=== PATIENT | male | born 1940 | race Caucasian/White ===

== ENCOUNTER 2018-11-03 23:56 | Emergency (ER) | payer MEDICARE ==
--- NOTE | 2018-11-04 01:21 | ED ---
HPI Chest Pain - HPI Summary HPI Summary: Pt is a 78 y/o M presenting to the ED with a chief complaint of chest pain first onset at about 2300. He states he was coming home from [place] today when he thought his blood sugar was low d/t feeling shakey and dizzy, but he ate and did not feel better. After getting off the plane, he was in the car home when he felt his chest was very tight. It has since not gone away. - History of Current Complaint Chief Complaint: EDChestPainROMI Time Seen by Provider: 11/04/18 00:28 Hx Obtained From: Patient Onset/Duration: Started Hours Ago, Still Present Timing: Constant, Lasting Hours Initial Severity: Moderate Current Severity: Mild Pain Intensity: 3 Pain Scale Used: 0-10 Numeric Chest Pain Location: Diffuse Chest Pain Radiates: No Character: Tightness Aggravating Factor(s): Nothing Alleviating Factor(s): Nothing Associated Signs and Symptoms: Positive: Dizziness, Other: - shakiness - Allergy/Home Medications Allergies/Adverse Reactions: Allergies Allergy/AdvReac Type Severity Reaction Status Date / Time acetaminophen Allergy See Comment Verified 11/04/18 00:05 streptomycin Allergy See Comment Verified 11/04/18 00:05 bee sting Allergy Severe Anaphylatic Uncoded 11/04/18 00:05 Shock Home Medications: Home Medications Alfuzosin HCl [Alfuzosin HCl ER] 1 tab PO DAILY 11/04/18 [History Confirmed ] PMH/Surg Hx/FS Hx/Imm Hx Previously Healthy: Yes Endocrine/Hematology History: Denies: Hx Diabetes, Hx Systemic Lupus Erythematosus Cardiovascular History: Denies: Hx Congestive Heart Failure, Hx Hypertension Respiratory History: Reports: Hx Sleep Apnea - ORAL APPLIANCE GI History: Reports: Hx Gastroesophageal Reflux Disease - ON MEDICATION FOR, Other GI Disorders - gerd History: Denies: Hx Dialysis, Hx Renal Disease Musculoskeletal History: Reports: Other Musculoskeletal History - 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 [facility] Hx Anesthesia Reactions: Yes - LITTLE LONGER THAN EXPECTED TO WAKE UP - Immunization History Date of Tetanus Vaccine: utd Date of Influenza Vaccine: fall 2017 Infectious Disease History: No Infectious Disease History: Reports: Hx Hepatitis - 1955 Denies: Traveled Outside the [place] in Last 30 Days - Family History Known Family History: Negative: Diabetes - Social History Alcohol Use: Daily Alcohol Amount: 1 glass of wine/day, 5-6 days per week Hx Substance Use: No Substance Use Type: Reports: None Hx Tobacco Use: No Smoking Status (MU): Never Smoked Tobacco Review of Systems Positive: Other - shakiness Positive: Chest Pain Psychological: Other - dizziness All Other Systems Reviewed And Are Negative: Yes Physical Exam - Summary Physical Exam Summary: Appearance: Well-appearing, Well-nourished, lying in bed comfortably Skin: Warm, dry, no obvious rash Eyes: sclera anicteric, no conjunctival pallor ENT: mucous membranes moist, pharynx appears normal Neck: Supple, nontender Respiratory: Clear to auscultation, no signs of respiratory distress Cardiovascular: Normal S1, S2. No murmurs. Normal distal pulses in tibial and radial bilaterally. Abdomen: Soft, nontender, normal active bowel sounds present Musculoskeletal: Normal, Strength/ROM Intact Neurological: A&Ox3, awake and alert, mentation is normal, speech is fluent and appropriate Psychiatric: affect is normal, does not appear anxious or depressed Triage Information Reviewed: Yes Vital Signs On Initial Exam: Initial Vitals Temp Pulse Resp BP Pulse Ox 98.1 F 86 22 156/92 100 11/04/18 00:02 11/04/18 00:02 11/04/18 00:02 11/04/18 00:02 11/04/18 00:02 Vital Signs Reviewed: Yes Diagnostics - Vital Signs Vital Signs Temp Pulse Resp BP Pulse Ox 11/04/18 00:11 78 16 99 11/04/18 00:10 77 20 149/89 100 11/04/18 00:02 98.1 F 86 22 156/92 100 - Laboratory Result Diagrams: 11/04/18 01:36 11/04/18 01:36 Lab Statement: Any lab studies that have been ordered have been reviewed, and results considered in the medical decision making process. - EKG 2358 Cardiac Rate: NL - 83bpm EKG Rhythm: Sinus Rhythm ST Segment: Normal Ectopy: None Summary of EKG Findings: EKG at 2358 shows NSR at 83bpm with no STEMI. Re-Evaluation - Re-Evaluation First Eval Re-Evaluation Time: 02:29 Change: Improved Comment: Pt has only minimal discomfort, now minimizing earlier symptoms. I reiterated need for repeat troponin testing, have ordered it for 0300 which would bring us to a delta 90 minutes which is the narrowest window I can tolerate for repeat troponin testing. Chest Pain Course/Dx - Course Course Of Treatment: Pt is a 78 y/o M presenting to the ED with a chief complaint of chest pain first onset around 2300. He felt shakey and dizzy earlier today which he thought was due to low blood sugar, but then getting in the car to go home he felt chest tightness, like his seatbelt was too tight, and it has not gone away. EKG at 2358 shows NSR at 83bpm with no STEMI. As of 228, pt has only minimal discomfort, now minimizing earlier symptoms. I reiterated need for repeat troponin testing, have ordered it for 0300 which would bring us to a delta 90 minutes which is the narrowest window I can tolerate for repeat troponin testing. His second troponin is 0.00, and he will be sent home with a dx of chest pain. He is stable and agreeable with this plan. - Diagnoses Provider Diagnoses: Chest pain Discharge - Sign-Out/Discharge Documenting (check all that apply): Patient Departure Patient Received Moderate/Deep Sedation with Procedure: No - Discharge Plan Condition: Good Disposition: HOME Patient Education Materials: Chest Pain (ED) Referrals: Jaleesa ESPINOZA,Farhan Salinas [Primary Care Provider] - Additional Instructions: The tests we did tonight did not show any sign of a heart problem, so we feel it is safe to go home tonight. I would ask that you contact your PCP early next week as you will likely need some outpatient testing to make sure your heart is ok. - Billing Disposition and Condition Condition: GOOD Disposition: Home - Attestation Statements Document Initiated by Scribe: Yes Documenting Scribe: Alysha Dalton Provider For Whom Scribe is Documenting (Include Credential): Deandre Fernandez MD. Scribe Attestation: I, Alysha Dalton, scribed for Deandre Fernandez MD. on 11/08/18 at 0455. Scribe Documentation Reviewed: Yes Provider Attestation: The documentation as recorded by the scribe, Alysha Dalton accurately reflects the service I personally performed and the decisions made by me, Deandre Fernandez MD. Status of Scribe Document: Viewed
[2018-11-04 01:54] LABS: ABS Basophils 0.1 10^3/ul (0-0.2); ABS Eosinophils 0.4 10^3/ul (0-0.6); ABS Lymphocytes 1.6 10^3/ul (1.0-4.8); ABS Monocytes 0.8 10^3/ul (0-0.8); Eosinophil % 4.6 %; Hematocrit 41 % (42-52); Hemoglobin 13.5 g/dL (14.0-18.0); Lymphocyte % 17.5 %; Mean Corpuscular HGB Conc 33 g/dL (31-36); Mean Corpuscular Hemoglobin 32 pg (27-31); Mean Corpuscular Volume 95 fL (80-94); Platelet Count 221 10^3/uL (150-450); Red Blood Count 4.27 10^6 /uL (4.18-5.48); Red Cell Distribution Width 14 % (10.5-15); White Blood Count 8.9 10^3/uL (3.5-10.8)
[2018-11-04 01:57] LABS: INR 0.97 (0.82-1.09)
[2018-11-04 02:09] LABS: Albumin 3.9 g/dL (3.2-5.2); BUN/Creatinine Ratio 22.2 (8-20); Calcium 8.9 mg/dL (8.6-10.3); EGFR African American 80.4 (>60); EGFR Non-African American 66.5 (>60); Potassium 3.9 mmol/L (3.5-5.0); Total Bilirubin 0.8 mg/dL (0.2-1.0); Total Protein 5.9 g/dL (6.4-8.9)
[2018-11-04 04:02] VITALS: BP 140/85
== END 2018-11-04 04:01 | disposition home or self-care (01) ==
LOC: ED 23:56
DX: R07.9 Chest pain, unspecified (principal); G47.30 Sleep apnea, unspecified; K21.9 Gastro-esophageal reflux disease without esophagitis; Z85.828 Personal history of other malignant neoplasm of skin
CPT/HCPCS: 36415; 80053; 84484; 85025; 85610; 93005; 99283

== ENCOUNTER 2024-03-09 14:20 | Inpatient (IN) ==
[2024-03-12] MEDS ORDERED: Senna TAB 8.6 mg TAB PO PRN (12:34)
[2024-03-12 14:22] LABS: Urine Appearance Clear; Urine Bilirubin Negative (Negative); Urine Blood Trace (Negative); Urine Color Yellow; Urine Glucose Negative (Negative); Urine Ketones Negative (Negative); Urine Nitrite Negative (Negative); Urine Protein Trace (Negative); Urine Specific Gravity 1.017 (1.002-1.030); Urine Urobilinogen 1+ (Negative); Urine pH 6.5 (5.0-8.0)
[2024-03-12 14:26] LABS: Urine Bacteria Absent /HPF (Absent); Urine Red Blood Cell 3+(>10/hpf) /HPF (0-Trace); Urine Squamous Epithelial Cell Present /HPF (Absent); Urine White Blood Cell 2+(11-20/hpf) /HPF (0-Trace)
[2024-03-12] MEDS: Heparin 5000 UNITS/ML 1 mL VIAL SUBCUT SCH (22:17)
[2024-03-13] MEDS: Polyethylene Glycol 3350 17 GM PACKET PO PRN (17:01)
[2024-03-13] MEDS: Senna TAB 8.6 mg TAB PO SCH (21:03)
[2024-03-14 07:27] LABS: ABS Basophils 0.1 10^3/uL (0.0-0.1); ABS Eosinophils 0.6 10^3/uL (0.0-0.5); ABS Monocytes 1.3 10^3/uL (0.0-1.1); ABS Neutrophils 10.3 10^3/uL (1.5-7.6); Eosinophil % 4.6 %; Hematocrit 28.6 % (38-53); Hemoglobin 9.7 g/dL (13.2-16.3); Lymphocyte % 7.8 %; Mean Corpuscular Hemoglobin 31.1 pg (27-33); Mean Corpuscular Volume 91.4 fL (80-97); Platelet Count 344 10^3/uL (150-450); Red Blood Count 3.13 10^6/uL (4.06-5.63); Red Cell Distribution Width 15.9 % (12-17); White Blood Count 13.4 10^3/uL (3.6-10.2)
[2024-03-14] MEDS: oxyCODONE SR 15 mg TAB PO ONE (09:35)
[2024-03-14 09:36] LABS: Albumin/Globulin Ratio 1.6 (1-3); Calcium 8.3 mg/dL (8.6-10.3); Creatinine, Serum 0.81 mg/dL (0.67-1.17); Globulin 1.9 g/dL (2-4); Potassium 4.6 mmol/L (3.5-5.0); Total Bilirubin 5.1 mg/dL (0.2-1.0); Total Protein 4.9 g/dL (6.4-8.9)
[2024-03-14] MEDS: oxyCODONE SR 15 mg TAB PO SCH (20:09)
[2024-03-14] MEDS: ALFUZOSIN 10 MG PO SCH (21:08)
[2024-03-16 08:57] LABS: ABS Basophils 0.1 10^3/uL (0.0-0.1); ABS Eosinophils 0.4 10^3/uL (0.0-0.5); ABS Lymphocytes 0.9 10^3/uL (1.0-4.8); ABS Monocytes 1.2 10^3/uL (0.0-1.1); ABS Neutrophils 11.1 10^3/uL (1.5-7.6); Hematocrit 28.8 % (38-53); Hemoglobin 9.5 g/dL (13.2-16.3); Lymphocyte % 6.7 %; Mean Corpuscular Hemoglobin 30.4 pg (27-33); Mean Corpuscular Volume 92.1 fL (80-97); Mean Platelet Volume 7.8 fL (7.5-11.2); Platelet Count 427 10^3/uL (150-450); Red Blood Count 3.13 10^6/uL (4.06-5.63); Red Cell Distribution Width 16.1 % (12-17); White Blood Count 13.7 10^3/uL (3.6-10.2)
[2024-03-16] MEDS: Polyethylene Glycol 3350 17 GM PACKET PO SCH (09:04)
[2024-03-16 09:47] LABS: Albumin/Globulin Ratio 1.5 (1-3); Calcium 8.1 mg/dL (8.6-10.3); Creatinine, Serum 0.83 mg/dL (0.67-1.17); Potassium 4.5 mmol/L (3.5-5.0); Total Bilirubin 5.7 mg/dL (0.2-1.0); eGFR CKD-EPI 87.4 (>60)
[2024-03-16 10:33] LABS: Direct Bilirubin 2.4 mg/dL (0.03-0.18); Indirect Bilirubin 3.3 mg/dL (0.3-1.0)
[2024-03-17 08:54] LABS: Immature Retic Fraction 0.49
[2024-03-17 09:24] LABS: Corrected Retic Count 2.1 % (0.5-2.2); Hematocrit for Retic CNT 29.9 % (38-53); RBC Retic Count 3.23 10^6/ul (4.06-5.63)
[2024-03-17] MEDS: Enoxaparin 100 MG/ML SYR SUBCUT SCH (22:04)
[2024-03-18 06:20] LABS: ABS Basophils 0.1 10^3/uL (0.0-0.1); ABS Eosinophils 0.4 10^3/uL (0.0-0.5); ABS Lymphocytes 1.3 10^3/uL (1.0-4.8); ABS Monocytes 1.1 10^3/uL (0.0-1.1); ABS Neutrophils 8.8 10^3/uL (1.5-7.6); ABS Nucleated RBC 0.01 10^3/ul; Eosinophil % 3.3 %; Hemoglobin 9.4 g/dL (13.2-16.3); Lymphocyte % 11.2 %; Mean Corpuscular Hemoglobin 31.2 pg (27-33); Mean Corpuscular Hgb Conc 33.8 g/dL (31-36); Mean Corpuscular Volume 92.4 fL (80-97); Mean Platelet Volume 8.1 fL (7.5-11.2); Platelet Count 459 10^3/uL (150-450); Red Blood Count 3.03 10^6/uL (4.06-5.63); Red Cell Distribution Width 16.4 % (12-17); White Blood Count 11.7 10^3/uL (3.6-10.2)
[2024-03-18 06:32] LABS: Activated Partial Thrombo Time 29.6 seconds (26.0-38.0); INR 1.14 (0.85-1.14)
[2024-03-18] MEDS: Enoxaparin 100 MG/ML SYR SUBCUT SCH (08:47)
[2024-03-19 06:53] LABS: ABS Basophils 0.1 10^3/uL (0.0-0.1); ABS Eosinophils 0.4 10^3/uL (0.0-0.5); ABS Lymphocytes 1.4 10^3/uL (1.0-4.8); ABS Neutrophils 8.3 10^3/uL (1.5-7.6); ABS Nucleated RBC 0.01 10^3/ul; Hematocrit 28.6 % (38-53); Hemoglobin 9.7 g/dL (13.2-16.3); Lymphocyte % 12.3 %; Mean Corpuscular Hemoglobin 31.5 pg (27-33); Mean Corpuscular Hgb Conc 33.9 g/dL (31-36); Mean Corpuscular Volume 93.1 fL (80-97); Mean Platelet Volume 8.2 fL (7.5-11.2); Platelet Count 466 10^3/uL (150-450); Red Blood Count 3.07 10^6/uL (4.06-5.63); Red Cell Distribution Width 16.9 % (12-17); White Blood Count 11.2 10^3/uL (3.6-10.2)
[2024-03-19 07:06] LABS: Albumin 2.9 g/dL (3.2-5.2); Albumin/Globulin Ratio 1.5 (1-3); Creatinine, Serum 0.71 mg/dL (0.67-1.17); Potassium 4.6 mmol/L (3.5-5.0); Total Bilirubin 3.2 mg/dL (0.2-1.0); Total Protein 4.9 g/dL (6.4-8.9); eGFR CKD-EPI 91.6 (>60)
[2024-03-20 10:20] LABS: Ferritin 590.6 ng/mL (24-336)
[2024-03-21 07:27] LABS: ABS Basophils 0.1 10^3/uL (0.0-0.1); ABS Eosinophils 0.3 10^3/uL (0.0-0.5); ABS Lymphocytes 1.1 10^3/uL (1.0-4.8); ABS Monocytes 0.9 10^3/uL (0.0-1.1); Eosinophil % 3.4 %; Hematocrit 31.7 % (38-53); Hemoglobin 10.7 g/dL (13.2-16.3); Lymphocyte % 11.6 %; Mean Corpuscular Hemoglobin 31.6 pg (27-33); Mean Corpuscular Hgb Conc 33.6 g/dL (31-36); Mean Corpuscular Volume 93.9 fL (80-97); Mean Platelet Volume 7.7 fL (7.5-11.2); Platelet Count 449 10^3/uL (150-450); Red Blood Count 3.38 10^6/uL (4.06-5.63); Red Cell Distribution Width 16.9 % (12-17); White Blood Count 9.4 10^3/uL (3.6-10.2)
[2024-03-21 07:43] LABS: Albumin 2.9 g/dL (3.2-5.2); Albumin/Globulin Ratio 1.4 (1-3); Calcium 8.2 mg/dL (8.6-10.3); Creatinine, Serum 0.72 mg/dL (0.67-1.17); Globulin 2.1 g/dL (2-4); Potassium 4.7 mmol/L (3.5-5.0); Total Bilirubin 2.7 mg/dL (0.2-1.0); eGFR CKD-EPI 91.2 (>60)
[2024-03-26 06:20] LABS: ABS Basophils 0.1 10^3/uL (0.0-0.1); ABS Eosinophils 0.4 10^3/uL (0.0-0.5); ABS Lymphocytes 1.2 10^3/uL (1.0-4.8); ABS Neutrophils 6.9 10^3/uL (1.5-7.6); Eosinophil % 4.2 %; Hematocrit 33.9 % (38-53); Hemoglobin 11.2 g/dL (13.2-16.3); Mean Corpuscular Hemoglobin 30.9 pg (27-33); Mean Corpuscular Hgb Conc 32.9 g/dL (31-36); Platelet Count 278 10^3/uL (150-450); Red Blood Count 3.61 10^6/uL (4.06-5.63); White Blood Count 9.6 10^3/uL (3.6-10.2)
[2024-03-27] MEDS: oxyCODONE 5 mg/5 ml ORAL.SOLN UDC PO PRN (17:35)
[2024-03-28 07:09] LABS: ABS Basophils 0.1 10^3/uL (0.0-0.1); ABS Eosinophils 0.5 10^3/uL (0.0-0.5); ABS Lymphocytes 1.2 10^3/uL (1.0-4.8); ABS Monocytes 0.8 10^3/uL (0.0-1.1); ABS Neutrophils 5.7 10^3/uL (1.5-7.6); Eosinophil % 6.4 %; Hematocrit 34.3 % (38-53); Hemoglobin 11.3 g/dL (13.2-16.3); Lymphocyte % 14.6 %; Mean Corpuscular Hemoglobin 31.1 pg (27-33); Mean Corpuscular Volume 94.1 fL (80-97); Mean Platelet Volume 8.2 fL (7.5-11.2); Platelet Count 284 10^3/uL (150-450); Red Blood Count 3.64 10^6/uL (4.06-5.63); Red Cell Distribution Width 17.1 % (12-17); White Blood Count 8.4 10^3/uL (3.6-10.2)
[2024-03-28 07:43] LABS: Albumin 3.1 g/dL (3.2-5.2); Albumin/Globulin Ratio 1.6 (1-3); Calcium 8.5 mg/dL (8.6-10.3); Creatinine, Serum 0.74 mg/dL (0.67-1.17); Potassium 4.6 mmol/L (3.5-5.0); Total Bilirubin 1.5 mg/dL (0.2-1.0); Total Protein 5.1 g/dL (6.4-8.9); eGFR CKD-EPI 90.5 (>60)
[2024-04-02] MEDS: oxyCODONE 5 mg/5 ml ORAL.SOLN UDC PO ONE (18:59)
[2024-04-02] MEDS: Amoxicillin/Clavul 875/125 TAB (Augmentin 875 tab) PO ONE (23:23)
[2024-04-03 05:47] LABS: ABS Basophils 0.1 10^3/uL (0.0-0.1); ABS Eosinophils 0.1 10^3/uL (0.0-0.5); ABS Neutrophils 10.3 10^3/uL (1.5-7.6); ABS Nucleated RBC 0.01 10^3/ul; Eosinophil % 0.8 %; Hematocrit 34.7 % (38-53); Hemoglobin 11.4 g/dL (13.2-16.3); Lymphocyte % 7.9 %; Mean Corpuscular Hemoglobin 30.9 pg (27-33); Mean Corpuscular Hgb Conc 32.9 g/dL (31-36); Mean Corpuscular Volume 93.9 fL (80-97); Mean Platelet Volume 8.7 fL (7.5-11.2); Nucleated Red Blood Cells % 0.1 %/100WBC (0.0-0.8); Platelet Count 282 10^3/uL (150-450); Red Blood Count 3.69 10^6/uL (4.06-5.63); Red Cell Distribution Width 16.7 % (12-17); White Blood Count 12.4 10^3/uL (3.6-10.2)
[2024-04-03 06:16] LABS: Calcium 8.1 mg/dL (8.6-10.3); Creatinine, Serum 0.78 mg/dL (0.67-1.17); Potassium 4.5 mmol/L (3.5-5.0)
[2024-04-03] MEDS: Amoxicillin/Clavul 875/125 TAB (Augmentin 875 tab) PO SCH (08:49)
[2024-04-03] MEDS: Enoxaparin 100 MG/ML SYR SUBCUT SCH (08:53)
[2024-04-04 07:05] LABS: ABS Basophils 0.1 10^3/uL (0.0-0.1); ABS Eosinophils 0.5 10^3/uL (0.0-0.5); ABS Lymphocytes 0.9 10^3/uL (1.0-4.8); ABS Monocytes 0.9 10^3/uL (0.0-1.1); ABS Neutrophils 9.9 10^3/uL (1.5-7.6); Eosinophil % 4.2 %; Hematocrit 30.6 % (38-53); Hemoglobin 10.2 g/dL (13.2-16.3); Lymphocyte % 7.1 %; Mean Corpuscular Hemoglobin 31.4 pg (27-33); Mean Corpuscular Hgb Conc 33.5 g/dL (31-36); Mean Corpuscular Volume 93.8 fL (80-97); Mean Platelet Volume 8.5 fL (7.5-11.2); Platelet Count 256 10^3/uL (150-450); Red Blood Count 3.26 10^6/uL (4.06-5.63); Red Cell Distribution Width 16.4 % (12-17); White Blood Count 12.3 10^3/uL (3.6-10.2)
[2024-04-04 07:40] LABS: Albumin 2.7 g/dL (3.2-5.2); Albumin/Globulin Ratio 1.4 (1-3); Calcium 8.1 mg/dL (8.6-10.3); Creatinine, Serum 0.72 mg/dL (0.67-1.17); Potassium 4.2 mmol/L (3.5-5.0); Total Protein 4.7 g/dL (6.4-8.9); eGFR CKD-EPI 91.2 (>60)
[2024-04-05] MEDS: Magnesium Hydroxide LIQ 30 ML UDC PO PRN (09:35)
[2024-04-06 07:07] LABS: ABS Eosinophils 0.6 10^3/uL (0.0-0.5); ABS Monocytes 0.7 10^3/uL (0.0-1.1); ABS Neutrophils 5.1 10^3/uL (1.5-7.6); Eosinophil % 7.6 %; Hematocrit 29.4 % (38-53); Hemoglobin 9.9 g/dL (13.2-16.3); Lymphocyte % 13.3 %; Mean Corpuscular Hemoglobin 31.6 pg (27-33); Mean Corpuscular Hgb Conc 33.8 g/dL (31-36); Mean Corpuscular Volume 93.5 fL (80-97); Mean Platelet Volume 8.5 fL (7.5-11.2); Platelet Count 268 10^3/uL (150-450); Red Blood Count 3.15 10^6/uL (4.06-5.63); Red Cell Distribution Width 16.2 % (12-17); White Blood Count 7.4 10^3/uL (3.6-10.2)
[2024-04-06 07:18] LABS: Albumin 2.5 g/dL (3.2-5.2); Albumin/Globulin Ratio 1.3 (1-3); Calcium 8.3 mg/dL (8.6-10.3); Creatinine, Serum 0.68 mg/dL (0.67-1.17); Globulin 1.9 g/dL (2-4); Potassium 4.4 mmol/L (3.5-5.0); Total Bilirubin 0.7 mg/dL (0.2-1.0); Total Protein 4.4 g/dL (6.4-8.9); eGFR CKD-EPI 92.8 (>60)
[2024-04-09] MEDS: Nystatin TOP POWDER 15 GM BTL TOPICAL SCH (22:00)
[2024-04-11] MEDS: oxyCODONE SR 10 mg TAB PO SCH (21:20)
[2024-04-12] MEDS: Enoxaparin 80 MG/0.8 ML SYR SUBCUT SCH (20:52)
[2024-04-13 06:58] LABS: ABS Basophils 0.1 10^3/uL (0.0-0.1); ABS Eosinophils 0.4 10^3/uL (0.0-0.5); ABS Lymphocytes 1.4 10^3/uL (1.0-4.8); ABS Monocytes 0.7 10^3/uL (0.0-1.1); ABS Neutrophils 5.5 10^3/uL (1.5-7.6); Hematocrit 34.4 % (38-53); Hemoglobin 11.5 g/dL (13.2-16.3); Lymphocyte % 16.7 %; Mean Corpuscular Hemoglobin 31.6 pg (27-33); Mean Corpuscular Hgb Conc 33.6 g/dL (31-36); Mean Corpuscular Volume 94.2 fL (80-97); Mean Platelet Volume 7.9 fL (7.5-11.2); Platelet Count 330 10^3/uL (150-450); Red Blood Count 3.65 10^6/uL (4.06-5.63); Red Cell Distribution Width 16.3 % (12-17); White Blood Count 8.1 10^3/uL (3.6-10.2)
[2024-04-13 07:41] LABS: Albumin 2.9 g/dL (3.2-5.2); Albumin/Globulin Ratio 1.3 (1-3); Calcium 8.5 mg/dL (8.6-10.3); Creatinine, Serum 0.75 mg/dL (0.67-1.17); Globulin 2.2 g/dL (2-4); Potassium 4.5 mmol/L (3.5-5.0); Total Bilirubin 0.7 mg/dL (0.2-1.0); Total Protein 5.1 g/dL (6.4-8.9); eGFR CKD-EPI 90.1 (>60)
[2024-04-14] MEDS: Polyethylene Glycol 3350 17 GM PACKET PO SCH (22:04)
[2024-04-16 06:37] LABS: ABS Eosinophils 0.3 10^3/uL (0.0-0.5); ABS Lymphocytes 1.3 10^3/uL (1.0-4.8); ABS Monocytes 0.8 10^3/uL (0.0-1.1); ABS Neutrophils 7.3 10^3/uL (1.5-7.6); Eosinophil % 2.8 %; Hematocrit 32.1 % (38-53); Hemoglobin 10.9 g/dL (13.2-16.3); Lymphocyte % 13.2 %; Mean Corpuscular Hemoglobin 31.9 pg (27-33); Mean Corpuscular Hgb Conc 34.1 g/dL (31-36); Mean Corpuscular Volume 93.7 fL (80-97); Mean Platelet Volume 8.6 fL (7.5-11.2); Platelet Count 298 10^3/uL (150-450); Red Blood Count 3.42 10^6/uL (4.06-5.63); Red Cell Distribution Width 16.3 % (12-17); White Blood Count 9.7 10^3/uL (3.6-10.2)
[2024-04-16 16:42] LABS: Urine Appearance Extra Turbid; Urine Bilirubin Negative (Negative); Urine Blood 3+ (Negative); Urine Glucose Negative (Negative); Urine Ketones Negative (Negative); Urine Nitrite 2+ (Negative); Urine Protein 2+ (>=100 mg/dL) (Negative); Urine Specific Gravity 1.019 (1.002-1.030); Urine Urobilinogen Negative (Negative)
[2024-04-16 16:57] LABS: Urine Bacteria 2+ /HPF (Absent); Urine Red Blood Cell 3+(>10/hpf) /HPF (0-Trace); Urine White Blood Cell 3+(>20/hpf) /HPF (0-Trace)
[2024-04-16 16:58] LABS: Urine Color Yellow
[2024-04-16] MEDS: Sulfamethox/Trimethoprim DS TAB 800/160 mg PO SCH (20:34)
[2024-04-19] MEDS: Zinc Oxide 16% PASTE (Butt Paste) 30 gm TUBE TOPICAL SCH (10:18)
[2024-04-20 07:35] LABS: ABS Basophils 0.1 10^3/uL (0.0-0.1); ABS Eosinophils 0.4 10^3/uL (0.0-0.5); ABS Lymphocytes 1.2 10^3/uL (1.0-4.8); ABS Monocytes 0.7 10^3/uL (0.0-1.1); ABS Neutrophils 6.1 10^3/uL (1.5-7.6); Eosinophil % 4.8 %; Hematocrit 33.3 % (38-53); Hemoglobin 11.3 g/dL (13.2-16.3); Lymphocyte % 14.3 %; Mean Corpuscular Hemoglobin 31.7 pg (27-33); Mean Corpuscular Volume 93.4 fL (80-97); Mean Platelet Volume 8.3 fL (7.5-11.2); Platelet Count 291 10^3/uL (150-450); Red Blood Count 3.56 10^6/uL (4.06-5.63); Red Cell Distribution Width 15.6 % (12-17); White Blood Count 8.5 10^3/uL (3.6-10.2)
[2024-04-20 07:56] LABS: Albumin 3.1 g/dL (3.2-5.2); Albumin/Globulin Ratio 1.3 (1-3); Calcium 8.7 mg/dL (8.6-10.3); Creatinine, Serum 0.91 mg/dL (0.67-1.17); Globulin 2.3 g/dL (2-4); Potassium 4.4 mmol/L (3.5-5.0); Total Bilirubin 0.6 mg/dL (0.2-1.0); Total Protein 5.4 g/dL (6.4-8.9); eGFR CKD-EPI 84.1 (>60)
[2024-04-22 16:11] VITALS: BP 106/58
== END 2024-04-23 11:30 | disposition swing bed (61) | DRG 560 ==
LOC: PMRU 03-12 11:56
PROVIDERS: ADMIT Physical Medicine & Rehabilitation; ATTEND Physical Medicine & Rehabilitation